=== PATIENT | female | born 1990 ===

== ENCOUNTER → 2023-06-13 14:26 | Outpatient (CLI) | payer OTHER, SELFPAY ==
--- NOTE | 2023-06-13 | DI.US.S_ITS ---
PROCEDURE: US PELVIC COMPLETE INDICATIONS: ABNORMAL UTERINE BLEEDING TECHNIQUE: Real-time scanning was performed of the pelvic organs, with image documentation. Additional endovaginal scanning was necessary due to incomplete visualization of the adnexal and endometrial structures by transabdominal scanning. COMPARISON: None. FINDINGS: Uterus: Uterus is anteverted and normal in size at 8.0 x 6.1 x 3.3 cm. The myometrium is homogeneous. The endometrium measures 4.1 mm combined thickness. Intrauterine device is noted in its normal central endometrial location. No endometrial mass or fluid. Ovaries: The right ovary measures 2.6 x 1.5 x 1.8 cm, with a calculated ovarian volume of 3.7 cc. The left ovary measures 2.8 x 2.2 x 2.0 cm, with a calculated ovarian volume of 6.4 cc. The ovaries have a normal sonographic appearance. Less than 12 follicles can be seen in each ovary. No adnexal masses are seen. Other: No pathologic free abdominal or pelvic fluid. Prominent venous structures are noted near bilateral uterine cornea with reflux seen with Valsalva. IMPRESSION: 1. Intrauterine device is noted in its normal central endometrial location. No endometrial mass or fluid. 2. Normal appearing bilateral ovaries. 3. Prominent bilateral pelvic veins as described above, which can be seen associated with pelvic congestion syndrome suggest clinical correlation. We strive to produce accurate, complete, and clear reports of imaging services. To assist us in improving patient care, this report was composed using standard report templates and voice recognition software. Therefore, it may contain abnormal punctuation, insertions and/or omissions. Occasional wrong-word or sound-alike substitutions may occur. Though we review the report and make efforts to correct it, we do recommend that the report be read carefully in proper context to recognize any text inaccuracies. Dictated by: Dino Merrill M.D. on 06/13/2023 at 17:18 Approved by: Dino Merrill M.D. on 06/13/2023 at 17:21
== END ==
PROVIDERS: PCP Registered Nurse; Referring Provider Registered Nurse; Visit Provider Registered Nurse
DX: N93.9 Abnormal uterine and vaginal bleeding, unspecified (principal); Z97.5 Presence of (intrauterine) contraceptive device
CPT/HCPCS: 76830; 76856